=== PATIENT | female | born 1995 | race Caucasian/White ===

== ENCOUNTER 2017-08-09 11:19 | Day surgery (SDC) | payer OTHER ==
[2017-08-09] MEDS ORDERED: PROPOFOL INJ 200 MG/20 ML VIAL IV ONE (13:27)
[2017-08-09] MEDS ORDERED: DIPHENHYDRAMINE HCL 50 MG/ML VIAL IV PRN (13:52)
[2017-08-09] MEDS ORDERED: PROMETHAZINE HCL INJ 25 MG/1 ML VIAL IV PRN ×2 (13:52)
[2017-08-09] MEDS ORDERED: FENTANYL CITRATE INJ/PF 100 MCG/2 ML AMPUL IV PRN (13:52)
[2017-08-09] MEDS ORDERED: MEPERIDINE HCL/PF INJ 25 MG/1 ML DISP.SYRIN IV PRN (13:52)
--- NOTE | 2017-08-09 14:07 | Operative Report ---
Operative Report DATE OF SURGERY: 08/09/17 Operative Report: The risks, benefits and alternatives of the procedure including the risks of bleeding, perforation requiring surgery are explained to the patient in detail and informed consent is obtained. The patient is placed in the left, lateral decubital position. Timeout was called. Propofol medications administered. A rectal examination is done which did not reveal any masses, tears or fissures. An Olympus videoscope was inserted into the patient's rectum. The scope was then carefully advanced all the way to the cecum. The cecum was identified by the usual anatomical landmarks including the ileocecal valve as well as the appendiceal office. Photodocumentation is obtained. The scope was then sequentially pulled back via the various segments of the colon including the ascending colon, hepatic flexure, transverse colon, splenic flexure, descending colon and finally into the rectosigmoid portions of the colon. Retroflexion maneuvers performed. PREOPERATIVE DIAGNOSIS: change in bowel habits POSTOPERATIVE DIAGNOSIS: mild terminal ileitis OPERATION: Colonoscopy with biopsy SURGEON: CECILLE JAIN ANESTHESIA: LMAC TISSUE REMOVED OR ALTERED: As noted above. COMPLICATIONS: None. ESTIMATED BLOOD LOSS: None. INTRAOPERATIVE FINDINGS: As noted above. PROCEDURE: Patient tolerated procedure well. No immediate postprocedure complications are noted. Patient discharged in good condition. Discharge date 08/09/2017. Discharge diet: Regular. Discharge activity: Regular. 2-3 week follow-up to discuss findings. Patient is instructed to call the office or proceed to the emergency room should there be any further problems or questions. We will went pathology.
[2017-08-09] MEDS ORDERED: PROMETHAZINE HCL INJ 25 MG/1 ML VIAL INJ PRN (14:26)
[2017-08-09] MEDS ORDERED: ACETAMINOPHEN 325 MG TABLET PO PRN (14:26)
[2017-08-09] MEDS ORDERED: SIMETHICONE 80 MG TAB.CHEW PO PRN (14:26)
[2017-08-09 15:50] VITALS: BP 107/73
== END 2017-08-09 15:51 | disposition home or self-care (01) ==
LOC: OROUT 11:19
PROVIDERS: ATTEND Internal Medicine Gastroenterology
DX: K52.9 Noninfective gastroenteritis and colitis, unspecified (principal); K64.8 Other hemorrhoids; F17.210 Nicotine dependence, cigarettes, uncomplicated; Z79.899 Other long term (current) drug therapy; Z79.1 Long term (current) use of non-steroidal anti-inflammatories (NSAID); Z88.1 Allergy status to other antibiotic agents; Z88.5 Allergy status to narcotic agent; Z91.040 Latex allergy status
CPT/HCPCS: 45380; 81025; 88305 ×2; J2704; 811

== ENCOUNTER 2017-08-12 09:06 | Emergency (ER) | payer OTHER ==
[2017-08-12 09:33] VITALS: BP 102/57
--- NOTE | 2017-08-12 09:51 | ER Document Report ---
ED General - General Chief Complaint: Abdominal Pain Stated Complaint: ABDOMINAL PAIN Time Seen by Provider: 08/12/17 09:23 Mode of Arrival: Ambulatory Information source: Patient Notes: 21-year-old female history of IBS, chronic constipation issues who takes MiraLAX daily states that she is had not had a bowel movement for the past 2 weeks. Patient had a colonoscopy performed just 3 days prior, has not had any vomiting denies any rectal bleeding notes a pound weight gain in the past 2 weeks due to constipation. Patient notes generalized cramping abdominal pain similar to her previous abdominal pain TRAVEL OUTSIDE OF THE [place] IN LAST 30 DAYS: No - HPI Onset: Other - 1-2 week duration Onset/Duration: Persistent Quality of pain: Cramping Severity: Mild Pain Level: 1 Associated symptoms: Other Exacerbated by: Denies Relieved by: Denies Similar symptoms previously: Yes Recently seen / treated by doctor: Yes - Related Data Allergies/Adverse Reactions: azithromycin Allergy (Verified 08/12/17 09:07) hives, rash tramadol Allergy (Verified 08/12/17 09:07) paranoia, shaking, palpitations latex Adverse Reaction (Verified 08/12/17 09:07) itching Past Medical History - Social History Smoking Status: Current Every Day Smoker Cigarette use (# per day): Yes Chew tobacco use (# tins/day): No Smoking Education Provided: No Frequency of alcohol use: None Drug Abuse: None Family History: Reviewed & Not Pertinent Patient has suicidal ideation: No Patient has homicidal ideation: No - Past Medical History Cardiac Medical History: Denies: Hx Coronary Artery Disease, Hx Heart Attack, Hx Hypertension Pulmonary Medical History: Reports: Hx Asthma Denies: Hx Bronchitis, Hx COPD, Hx Pneumonia Neurological Medical History: Denies: Hx Cerebrovascular Accident, Hx Seizures Renal/ Medical History: Denies: Hx Peritoneal Dialysis Musculoskeltal Medical History: Denies Hx Arthritis Psychiatric Medical History: Reports: Hx Bipolar Disorder, Hx Depression Past Surgical History: Reports: Hx Tonsillectomy - Immunizations Hx Diphtheria, Pertussis, Tetanus Vaccination: - Unsure Review of Systems - Review of Systems Notes: REVIEW OF SYSTEMS: CONSTITUTIONAL : Denies fever, chills, or sweats. Denies recent illness. EENT: Denies eye, ear, throat, or mouth pain or symptoms. Denies nasal or sinus congestion or discharge. Denies throat, tongue, or mouth swelling or difficulty swallowing. CARDIOVASCULAR: Denies chest pain. Denies palpitations or racing or irregular heart beat. Denies ankle edema. RESPIRATORY: Denies cough, cold, or chest congestion. Denies shortness of breath, difficulty breathing, or wheezing. GASTROINTESTINAL: Admits constipation GENITOURINARY: Denies difficulty urinating, painful urination, burning, frequency, blood in urine, or discharge. FEMALE GENITOURINARY: Denies vaginal bleeding, heavy or abnormal periods, irregular periods. Denies vaginal discharge or odor. MUSCULOSKELETAL: Denies back or neck pain or stiffness. Denies joint pain or swelling. SKIN: Denies rash, lesions or sores. HEMATOLOGIC : Denies easy bruising or bleeding. LYMPHATIC: Denies swollen, enlarged glands. NEUROLOGICAL: Denies confusion or altered mental status. Denies passing out or loss of consciousness. Denies dizziness or lightheadedness. Denies headache. Denies weakness or paralysis or loss of use of either side. Denies problems with gait or speech. Denies sensory loss, numbness, or tingling. Denies seizures. PSYCHIATRIC: Denies anxiety or stress. Denies depression, suicidal ideation, or homicidal ideation. ALL OTHER SYSTEMS REVIEWED AND NEGATIVE. PHYSICAL EXAMINATION: GENERAL: Well-appearing, well-nourished and in no acute distress. HEAD: Atraumatic, normocephalic. EYES: Pupils equal round and reactive to light, extraocular movements intact, conjunctiva are normal. ENT: Nares patent, oropharynx clear without exudates. Moist mucous membranes. NECK: Normal range of motion, supple without lymphadenopathy LUNGS: Breath sounds clear to auscultation bilaterally and equal. No wheezes rales or rhonchi. HEART: Regular rate and rhythm without murmurs ABDOMEN: Soft, nontender, nondistended abdomen. No guarding, no rebound. No masses appreciated. Female : deferred Musculoskeletal: Normal range of motion, no pitting or edema. No cyanosis. Patient has a back brace on NEUROLOGICAL: Cranial nerves grossly intact. Normal speech, normal gait. Normal sensory, motor exams PSYCH: Normal mood, normal affect. SKIN: Warm, Dry, normal turgor, no rashes or lesions noted. Dictation was performed using [employer] ? voice recognition software Physical Exam - Vital signs Vitals: Temp Pulse Resp BP Pulse Ox 98.2 F 62 16 102/57 L 100 06/01/18 09:32 08/12/17 09:32 08/12/17 09:32 08/12/17 09:32 08/12/17 09:32 Course - Re-evaluation Re-evalutation: 08/12/17 09:55 Patient has extensive history of abdominal pain psychiatric issues, she states she has not had a bowel movement in 1-2 weeks, this appears changes she had a colonoscopy with no complications on the , she has had no signs of perforation rectal bleeding and overall looks well. I will treat her at her request symptomatically, she notes pain medications make her more constipated I will treated with GoLYTELY and have her follow-up with her GI specialist tomorrow patient promises to do so, she also has a questionable history of possible back fracture versus malformation congenital, patient has an MRI planned by orthopedics for this She denies any neurological deficits After performing a Medical Screening Examination, I estimate there is LOW risk for ACUTE APPENDICITIS, BOWEL OBSTRUCTION, ACUTE CHOLECYSTITIS, PERFORATED DIVERTICULITIS, INCARCERATED HERNIA, PANCREATITIS, PELVIC INFLAMMATORY DISEASE, PERFORATED ULCER, ECTOPIC , or TUBO-OVARIAN ABSCESS, thus I consider the discharge disposition reasonable. Also, there is no evidence or peritonitis , sepsis, or toxicity. I have reevaluated this patient multiple times and no significant life threatening changes are noted. The patient and I have discussed the diagnosis and risks, and we agree with discharging home with close follow-up with the understanding that symptoms and presentations can change. We also discussed returning to the Emergency Department immediately if new or worsening symptoms occur. We have discussed the symptoms which are most concerning (e.g., bloody stool, fever, changing or worsening pain, vomiting) that necessitate immediate return. - Vital Signs Vital signs: Temp Pulse Resp BP Pulse Ox 98.2 F 62 16 102/57 L 100 08/12/17 09:32 08/12/17 09:32 08/12/17 09:32 08/12/17 09:32 08/12/17 09:32 Discharge - Discharge Clinical Impression: Constipation Qualifiers: Constipation type: unspecified constipation type Qualified Code(s): K59.00 - Constipation, unspecified Condition: Stable Disposition: HOME, SELF-CARE Instructions: Constipation ([facility]) Prescriptions: Acetaminophen with Codeine [Tylenol #3 Tablet] 1 each PO Q4HP PRN #10 tablet PRN Reason: Peg 3350/Na Sulf,Bicarb,Cl/KCl [Golytely Solution 4000 ml] 4,000 ml PO DAILY #1 bottle Referrals: RENEE PERSAUD FNP-C [Primary Care Provider] - Follow up as needed
== END 2017-08-12 09:57 | disposition home or self-care (01) ==
LOC: ER 09:06
DX: K59.00 Constipation, unspecified (principal); R10.84 Generalized abdominal pain; Z98.890 Other specified postprocedural states; F17.210 Nicotine dependence, cigarettes, uncomplicated; J45.909 Unspecified asthma, uncomplicated
CPT/HCPCS: 99283

== ENCOUNTER 2017-08-28 11:22 | Emergency (ER) | payer OTHER ==
--- NOTE | 2017-08-28 11:50 | ER Document Report ---
ED Neck/Back Problem - General Chief Complaint: Back Pain Stated Complaint: BACK AND NECK PAIN Time Seen by Provider: 08/28/17 11:48 Mode of Arrival: Ambulatory Information source: Patient Notes: 21-year-old female presented to ED for complaint of back pain. She states she went to [facility] on Tuesday and they did x-rays and stated that she had a broken back. She states they did an MRI on Tuesday and she was referred to pain management. She states that the doctor told her that they could not diagnose her with a broken back because he is not a radiologist. 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 He states that the doctor put her on a strong anti-inflammatory medicine but this is not doing her any good and she needs something stronger for her pain. I have greeted and performed a rapid initial assessment of this patient. A comprehensive ED assessment and evaluation of the patient, analysis of test results and completion of medical decision making process will be conducted by an additional ED providers. TRAVEL OUTSIDE OF THE [place] IN LAST 30 DAYS: No - Related Data Allergies/Adverse Reactions: azithromycin Allergy (Verified 08/28/17 11:24) hives, rash tramadol Allergy (Verified 08/28/17 11:24) paranoia, shaking, palpitations latex Adverse Reaction (Verified 08/28/17 11:24) itching Past Medical History - Social History Smoking Status: Current Every Day Smoker Frequency of alcohol use: Social Drug Abuse: None Family History: Reviewed & Not Pertinent Patient has suicidal ideation: No Patient has homicidal ideation: No - Past Medical History Cardiac Medical History: Denies: Hx Coronary Artery Disease, Hx Heart Attack, Hx Hypertension Pulmonary Medical History: Reports: Hx Asthma Denies: Hx Bronchitis, Hx COPD, Hx Pneumonia Neurological Medical History: Denies: Hx Cerebrovascular Accident, Hx Seizures Renal/ Medical History: Denies: Hx Peritoneal Dialysis Musculoskeltal Medical History: Denies Hx Arthritis Psychiatric Medical History: Reports: Hx Attention Deficit Hyperactivity Disorder, Hx Bipolar Disorder, Hx Depression Past Surgical History: Reports: Hx Tonsillectomy - Immunizations Hx Diphtheria, Pertussis, Tetanus Vaccination: - Unsure Physical Exam - Vital signs Vitals: Temp Pulse Resp BP Pulse Ox 98.2 F 87 20 115/80 99 08/28/17 11:28 08/28/17 11:28 08/28/17 11:28 08/28/17 11:28 08/28/17 11:28 Course - Vital Signs Vital signs: Temp Pulse Resp BP Pulse Ox 98.2 F 87 20 115/80 99 08/28/17 11:28 08/28/17 11:28 08/28/17 11:28 08/28/17 11:28 08/28/17 11:28
[2017-08-28 12:35] LABS: APPEARANCE,URINE SLIGHTLY-CLOUDY; BILIRUBIN,URINE NEGATIVE (NEGATIVE); COLOR,URINE YELLOW; GLUCOSE, URINE NEGATIVE (NEGATIVE); KETONES,URINE NEGATIVE (NEGATIVE); LEUKOCYTE ESTERASE,URINE MODERATE (NEGATIVE); NITRITE,URINE NEGATIVE (NEGATIVE); PROTEIN,URINE NEGATIVE (NEGATIVE); URINE SPECIFIC GRAVITY 1.009; UROBILINOGEN,URINE NEGATIVE mg/dL (<2.0)
[2017-08-28] MEDS ORDERED: HYDROCODONE/ACETAMINOPHEN 5-325 MG TABLET PO ONE (13:09)
[2017-08-28] MEDS ORDERED: CYCLOBENZAPRINE HCL 10 MG TABLET PO ONE (13:10)
--- NOTE | 2017-08-28 13:12 | ER Document Report ---
ED Neck/Back Problem - General Mode of Arrival: Ambulatory Information source: Patient TRAVEL OUTSIDE OF THE [place] IN LAST 30 DAYS: No <ABELARDO PALACIO - Last Filed: 08/28/17 13:50> <DAVID MARTINES - Last Filed: 08/28/17 14:16> - General Chief Complaint: Back Pain Stated Complaint: BACK AND NECK PAIN Time Seen by Provider: 08/28/17 11:48 Notes: Patient is a 21 year old female with bipolar disorder, ADD, and anxiety presents to the emergency department complaining of neck and chronic back pain. Patient states today her back pain radiated into her neck and caused her to collapse onto her bed. She states she has had back pain for years. She reports going to [facility] 5 days ago where xrays and MRIs were performed. She reports being told she has a broken back and was referred to pain management. She further states the doctor did not give her an official diagnosis because he stated he is not a radiologist. Patient states she has yet to go to pain management. Patient is currently on Klonopin. She mentions having a colonoscopy done on August 09, 2017 and being told she has IBS and an "issue" with her colon. She states she was also put on inhibitors. (ABELARDO PALACIO) - Related Data Allergies/Adverse Reactions: azithromycin Allergy (Verified 08/28/17 11:24) hives, rash tramadol Allergy (Verified 08/28/17 11:24) paranoia, shaking, palpitations latex Adverse Reaction (Verified 08/28/17 11:24) itching Past Medical History - General Information source: Patient - Social History Smoking Status: Current Every Day Smoker Frequency of alcohol use: Social Drug Abuse: None Family History: Reviewed & Not Pertinent Patient has suicidal ideation: No Patient has homicidal ideation: No Pulmonary Medical History: Reports: Hx Asthma Psychiatric Medical History: Reports: Hx Attention Deficit Hyperactivity Disorder, Hx Bipolar Disorder, Hx Depression Past Surgical History: Reports: Hx Tonsillectomy - Immunizations Hx Diphtheria, Pertussis, Tetanus Vaccination: - Unsure <ABELARDO PALACIO - Last Filed: 08/28/17 13:50> Review of Systems - Review of Systems Constitutional: No symptoms reported EENT: No symptoms reported Cardiovascular: No symptoms reported Respiratory: No symptoms reported Gastrointestinal: No symptoms reported Genitourinary: No symptoms reported Female Genitourinary: No symptoms reported Musculoskeletal: See HPI, Back pain, Neck pain Skin: No symptoms reported Hematologic/Lymphatic: No symptoms reported Neurological/Psychological: No symptoms reported -: Yes All other systems reviewed and negative <HAKEEM,TAMSUZIE - Last Filed: 08/28/17 13:50> Physical Exam - General General appearance: Alert, Other - Appears uncomfortable In distress: None - HEENT Head: Normocephalic, Atraumatic Eyes: Normal Conjunctiva: Normal Extraocular movements intact: Yes Pupils: PERRL Mucous membranes: Normal Neck: Normal - Respiratory Respiratory status: No respiratory distress Chest status: Nontender Breath sounds: Normal Chest palpation: Normal - Cardiovascular Rhythm: Regular Heart sounds: Normal auscultation Murmur: No Friction rub: No Gallop: None auscultated - Abdominal Inspection: Normal Distension: No distension Bowel sounds: Normal Tenderness: Nontender Organomegaly: No organomegaly - Back Back: Tender - Tender to palpation the lumbar spinous processes worse over L4 through L5. Tender to palpation over the thoracic spinous processes most tender over T2. Left trapezius and left posterior cervical muscles are tender to palpation. - Extremities General upper extremity: Normal ROM General lower extremity: Normal ROM - Neurological Neuro grossly intact: Yes Cognition: Normal Orientation: AAOx4 [place] Coma Scale Eye Opening: Spontaneous Patrick Coma Scale Verbal: Oriented [place] Coma Scale Motor: Obeys Commands [place] Coma Scale Total: 15 Speech: Normal - Psychological Associated symptoms: Normal affect, Normal mood - Skin Skin Temperature: Warm Skin Moisture: Dry Skin Color: Normal <HAKEEMABELARDO - Last Filed: 08/28/17 13:50> - Vital signs Vitals: Temp Pulse Resp BP Pulse Ox 98.2 F 87 20 115/80 99 08/28/17 11:28 08/28/17 11:28 08/28/17 11:28 08/28/17 11:28 08/28/17 11:28 Course - Diagnostic Test Radiology reviewed: Image reviewed, Reports reviewed - Lumbar spine shows anterolisthesis at L5-S1, and bilateral spondylolysis at L5. <DAVID MARTINES - Last Filed: 08/28/17 14:16> - Vital Signs Vital signs: Temp Pulse Resp BP Pulse Ox 98.2 F 87 20 115/80 99 08/28/17 11:28 08/28/17 11:28 08/28/17 11:28 08/28/17 11:28 08/28/17 11:28 - Laboratory Laboratory results interpreted by me: 08/28/17 11:55 Ur Leukocyte Esterase MODERATE H Discharge <ABELARDO PALACIO - Last Filed: 08/28/17 13:50> <DAVID MARTINES - Last Filed: 08/28/17 14:16> - Discharge Clinical Impression: Spondylolysis of lumbosacral region Strain of left trapezius muscle Qualifiers: Encounter type: initial encounter Qualified Code(s): S46.812A - Strain of other muscles, fascia and tendons at shoulder and upper arm level, left arm, initial encounter Chronic low back pain Qualifiers: Back pain laterality: midline Sciatica presence: without sciatica Qualified Code(s): M54.5 - Low back pain; G89.29 - Other chronic pain; G89.29 - Other chronic pain Condition: Stable Disposition: HOME, SELF-CARE Additional Instructions: The pain you are experiencing in your upper back and neck region is most likely due to strain of your trapezius muscle. Muscle relaxers may be of benefit to this area. The chronic pain in your lumbar back region is likely due to the spondylolysis that was seen on your x-ray, and that is what they were talking about when they said you had fractures in your back. Take the medication as prescribed for pain and muscle relaxation. Get plenty of rest. Wear your back brace all the time. Follow-up with your primary care provider this week for the recheck of your upper back, and to see when your chronic pain management appointment will be. Prescriptions: Hydrocodone/Acetaminophen [Hydrocodon-Acetaminophen 5-325] 1 each PO ASDIR PRN # 15 tablet PRN Reason: For Back Pain Methocarbamol [Robaxin 750 mg Tablet] 750 mg PO Q6 #20 tablet Scribe Attestation: 08/28/17 13:44 I personally performed the services described in the documentation, reviewed and edited the documentation which was dictated to the scribe in my presence, and it accurately records my words and actions. (DAVID MARTINES) Scribe Documentation - Scribe Written by Griffin:: Griffin Mccormack, 08/28/2017 13:26 acting as scribe for :: Pranav <ABELARDO PALACIO - Last Filed: 08/28/17 13:50>
--- NOTE | 2017-08-28 13:22 | RADIOLOGY REPORT (SQ) ---
EXAM DESCRIPTION: L SPINE WHOLE COMPLETED DATE/TIME: 08/28/2017 12:44 pm REASON FOR STUDY: Low back pain radiating to her legs and up to her COMPARISON: None. NUMBER OF VIEWS: Five views including obliques. TECHNIQUE: AP, lateral, oblique, and sacral radiographic images acquired of the lumbar spine. LIMITATIONS: None. FINDINGS: MINERALIZATION: Normal. SEGMENTATION: Normal. No transitional anatomy. ALIGNMENT: Mild grade 1 anterolisthesis of L5 over S1 related to bilateral L5 spondylolysis VERTEBRAE: Maintained height. No fracture or worrisome bone lesion. DISCS: Preserved height. No significant osteophytes or end plate irregularity. POSTERIOR ELEMENTS: Bilateral L5 spondylolysis HARDWARE: None in the spine. PARASPINAL SOFT TISSUES: Normal. PELVIS: Intact as visualized. No fractures or worrisome bone lesions. SI joints intact. OTHER: No other significant finding. IMPRESSION: Mild grade 1 anterolisthesis of L5 over S1 related to bilateral L5 spondylolysis TECHNICAL DOCUMENTATION: JOB ID: [id number] [employer]- All Rights Reserved Reading location - IP/workstation name: [email or web address]
[2017-08-28 14:33] VITALS: BP 123/65
== END 2017-08-28 14:26 | disposition home or self-care (01) ==
LOC: ER 11:22
DX: M47.897 Other spondylosis, lumbosacral region (principal); S46.812A Strain of other muscles, fascia and tendons at shoulder and upper arm level, left arm, initial encounter; X58.XXXA Exposure to other specified factors, initial encounter; M54.5 Low back pain; G89.29 Other chronic pain; F17.200 Nicotine dependence, unspecified, uncomplicated; Z88.3 Allergy status to other anti-infective agents; Z91.040 Latex allergy status
CPT/HCPCS: 72110; 81001; 81025; 99283

== ENCOUNTER 2017-10-22 17:22 | Emergency (ER) | payer OTHER ==
[2017-10-22] MEDS ORDERED: HYDROCODONE/ACETAMINOPHEN 5-325 MG TABLET PO ONE (18:06)
--- NOTE | 2017-10-22 18:11 | ER Document Report ---
ED Medical Screen (RME) - General Chief Complaint: Abdominal Pain Stated Complaint: ABDOMINAL PAIN Time Seen by Provider: 10/22/17 18:05 Mode of Arrival: Ambulatory Information source: Patient TRAVEL OUTSIDE OF THE [place] IN LAST 30 DAYS: No - HPI Patient complains to provider of: low abd pain Onset: Other - pt with low abd/pelvic pain for the past 2 weeks with exaacerbation today. She denies vaginal d/c or bleeding - Related Data Allergies/Adverse Reactions: azithromycin Allergy (Verified 10/22/17 17:23) hives, rash tramadol Allergy (Verified 10/22/17 17:23) paranoia, shaking, palpitations latex Adverse Reaction (Verified 10/22/17 17:23) itching Past Medical History - Social History Chew tobacco use (# tins/day): No Frequency of alcohol use: Rare Drug Abuse: Marijuana - Past Medical History Cardiac Medical History: Denies: Hx Coronary Artery Disease, Hx Heart Attack, Hx Hypertension Pulmonary Medical History: Reports: Hx Asthma Denies: Hx Bronchitis, Hx COPD, Hx Pneumonia Neurological Medical History: Denies: Hx Cerebrovascular Accident, Hx Seizures Renal/ Medical History: Denies: Hx Peritoneal Dialysis Musculoskeltal Medical History: Denies Hx Arthritis Psychiatric Medical History: Reports: Hx Attention Deficit Hyperactivity Disorder, Hx Bipolar Disorder, Hx Depression Past Surgical History: Reports: Hx Tonsillectomy - Immunizations Hx Diphtheria, Pertussis, Tetanus Vaccination: - Unsure History of Influenza Vaccine for 12/2016 - 05/2017 Season: No Physical Exam - Vital signs Vitals: Temp Pulse Resp BP Pulse Ox 98.4 F 109 H 16 108/67 100 10/22/17 17:29 10/22/17 17:29 10/22/17 17:29 10/22/17 17:29 10/22/17 17:29 Course - Vital Signs Vital signs: Temp Pulse Resp BP Pulse Ox 98.4 F 109 H 16 108/67 100 10/22/17 17:29 10/22/17 17:29 10/22/17 17:29 10/22/17 17:29 10/22/17 17:29 Doctor's Discharge - Discharge Referrals: STONE AMAYA PA-C [Primary Care Provider] - Follow up as needed
[2017-10-22 20:02] LABS: ABSOLUTE BASOPHILS # (AUTO) 0.1 10^3/uL (0.0-0.2); ABSOLUTE EOSINOPHILS # (AUTO) 0.1 10^3/uL (0.0-0.6); ABSOLUTE MONOCYTES (AUTO) 0.4 10^3/uL (0.1-1.4); ABSOLUTE NEUT (AUTO) 2.7 10^3/uL (1.7-8.2); BASOPHILS % (AUTO) 0.9 % (0-2); HEMATOCRIT 38.6 % (36.0-47.0); HEMOGLOBIN 13.2 g/dL (12.0-15.5); LYMPHOCYTES % (AUTO) 47.3 % (13-45); MEAN CORPUSCULAR HEMOGLOBIN 32.1 pg (27.0-33.4); MEAN CORPUSCULAR HGB CONC 34.2 g/dL (32.0-36.0); MEAN CORPUSCULAR VOLUME 94 fl (80-97); PLATELET COUNT 197 10^3/uL (150-450); RED BLOOD COUNT 4.11 10^6/uL (3.72-5.28); RED CELL DISTRIBUTION WIDTH 14.2 % (11.5-14.0); SEGMENTED NEUTROPHILS % (AUTO) 42.8 % (42-78); TOTAL CELLS COUNTED % (AUTO) 100 %; WHITE BLOOD COUNT 6.4 10^3/uL (4.0-10.5)
[2017-10-22 20:24] LABS: ALANINE AMINOTRANSFERASE 40 U/L (9-52); ALBUMIN 4.2 g/dL (3.5-5.0); ALKALINE PHOSPHATASE 47 U/L (38-126); ANION GAP 13 (5-19); ASPARTATE AMINO TRANSFERASE 22 U/L (14-36); BILIRUBIN,DIRECT 0.2 mg/dL (0.0-0.4); BILIRUBIN,TOTAL 0.5 mg/dL (0.2-1.3); BLOOD UREA NITROGEN 18 mg/dL (7-20); CALCIUM 9.1 mg/dL (8.4-10.2); CARBON DIOXIDE 22 mmol/L (22-30); CHLORIDE 106 mmol/L (98-107); GLUCOSE 85 mg/dL (75-110); POTASSIUM 3.7 mmol/L (3.6-5.0); SODIUM 141.2 mmol/L (137-145)
--- NOTE | 2017-10-22 20:48 | RADIOLOGY REPORT (SQ) ---
EXAM DESCRIPTION: U/S NON OB PEL W/DOPPLER COMPLETED DATE/TIME: 10/22/2017 7:35 pm REASON FOR STUDY: low abd pain COMPARISON: None. TECHNIQUE: Grayscale images acquired of the pelvis via transvaginal approach and recorded on PACS. A dditional selected color Doppler and spectral images recorded. LIMITATIONS: None. FINDINGS: UTERUS: Measures 8.4 x 3.9 x 5.2 cm. No focal myometrial mass. ENDOMETRIAL STRIPE: Measures 3 mm in double wall thickness. CERVIX: Measures 3.4 cm in length. No nabothian cysts. RIGHT OVARY AND DOPPLER: Measures 2.8 x 3.3 x 3.2 cm. Small follicles are noted. Flow by Doppler wa s shown to the right ovary. LEFT OVARY AND DOPPLER: Ovary not visualized. FREE FLUID: None noted. IMPRESSION: Nonvisualized left ovary. Otherwise, no acute findings. TECHNICAL DOCUMENTATION: JOB ID: [id number] [employer]- All Rights Reserved Rev Reading location - IP/workstation name: [email or web address]
[2017-10-22 21:14] LABS: APPEARANCE,URINE CLEAR; BILIRUBIN,URINE NEGATIVE (NEGATIVE); COLOR,URINE STRAW; GLUCOSE, URINE NEGATIVE (NEGATIVE); KETONES,URINE NEGATIVE (NEGATIVE); LEUKOCYTE ESTERASE,URINE NEGATIVE (NEGATIVE); NITRITE,URINE NEGATIVE (NEGATIVE); PROTEIN,URINE NEGATIVE (NEGATIVE); URINE SPECIFIC GRAVITY 1.016; UROBILINOGEN,URINE NEGATIVE mg/dL (<2.0)
--- NOTE | 2017-10-22 21:16 | ER Document Report ---
ED GI/ - General Chief Complaint: Abdominal Pain Stated Complaint: ABDOMINAL PAIN Time Seen by Provider: 10/22/17 18:05 Mode of Arrival: Ambulatory Notes: Patient is a 22-year-old female comes emergency department for chief complaint of pelvic pain on both sides, symptoms started about 2 weeks ago, intermittent, she denies vaginal bleeding or discharge, dysuria, flank pain, vomiting, fever. She denies any abdominal surgeries. History of anxiety/depression, medicated for this, no other medication types. Also has history of irritable bowel, negative colonoscopy in the past. Significant other at bedside. TRAVEL OUTSIDE OF THE [place] IN LAST 30 DAYS: No - Related Data Allergies/Adverse Reactions: azithromycin Allergy (Verified 10/22/17 18:10) hives, rash tramadol Allergy (Verified 10/22/17 18:10) paranoia, shaking, palpitations latex Adverse Reaction (Verified 10/22/17 18:10) itching Past Medical History - General Information source: Patient - Social History Smoking Status: Current Every Day Smoker Chew tobacco use (# tins/day): No Frequency of alcohol use: Rare Drug Abuse: Marijuana Lives with: Family Family History: Reviewed & Not Pertinent Patient has suicidal ideation: Yes - was at [facility] Patient has homicidal ideation: No - Past Medical History Cardiac Medical History: Denies: Hx Coronary Artery Disease, Hx Heart Attack, Hx Hypertension Pulmonary Medical History: Reports: Hx Asthma Denies: Hx Bronchitis, Hx COPD, Hx Pneumonia Neurological Medical History: Denies: Hx Cerebrovascular Accident, Hx Seizures Renal/ Medical History: Denies: Hx Peritoneal Dialysis Musculoskeletal Medical History: Denies Hx Arthritis Psychiatric Medical History: Reports: Hx Attention Deficit Hyperactivity Disorder, Hx Bipolar Disorder, Hx Depression Past Surgical History: Reports: Hx Tonsillectomy - Immunizations Hx Diphtheria, Pertussis, Tetanus Vaccination: Yes Review of Systems - Review of Systems Constitutional: No symptoms reported EENT: No symptoms reported Cardiovascular: No symptoms reported Respiratory: No symptoms reported Gastrointestinal: See HPI Genitourinary: See HPI Female Genitourinary: See HPI Musculoskeletal: No symptoms reported Skin: No symptoms reported Hematologic/Lymphatic: No symptoms reported Neurological/Psychological: No symptoms reported Physical Exam - Vital signs Vitals: Temp Pulse Resp BP Pulse Ox 98.4 F 109 H 16 108/67 100 10/22/17 17:29 10/22/17 17:29 10/22/17 17:29 10/22/17 17:29 10/22/17 17:29 - Notes Notes: GENERAL: Alert, interacts well. No acute distress. HEAD: Normocephalic, atraumatic. EYES: Pupils equal, round, and reactive to light. Extraocular movements intact. ENT: Oral mucosa moist, tongue midline. NECK: Full range of motion. Supple. Trachea midline. LUNGS: Clear to auscultation bilaterally, no wheezes, rales, or rhonchi. No respiratory distress. HEART: Regular rate and rhythm. No murmur ABDOMEN: Soft abdomen with some tenderness over the pelvic area but otherwise unremarkable. No guarding.. Non-distended. Bowel sounds present in all 4 quadrants. GENITOURINARY: Moderate amount of yellowish vaginal discharge, mild cervical motion tenderness, no concerning external examination findings, no other abnormalities noted. Sherley PCT present during exam. EXTREMITIES: Moves all 4 extremities spontaneously. No edema, normal radial and dorsalis pedis pulses bilaterally. No cyanosis. BACK: no cervical, thoracic, lumbar midline tenderness. No saddle anesthesia, normal distal neurovascular exam. NEUROLOGICAL: Alert and oriented x3. Normal speech. [cranial nerves II through XII grossly intact]. PSYCH: Normal affect, normal mood. SKIN: Warm, dry, normal turgor. No rashes or lesions noted. Course - Re-evaluation Re-evalutation: Mild pelvic tenderness on exam, no guarding suggest acute abdomen. Patient is well-appearing, no distress. Vital signs are unremarkable. No fever. CBC, chemistry, urinalysis reviewed and generally unremarkable. HCG is negative. Ultrasound with no acute findings. Physical examination does suggest pelvic infection, 2+ white blood cells on wet mount, unremarkable otherwise. Discussed with patient. Covering for pelvic infection for suspected source of pain symptoms, discussed follow-up, discussed return precautions, patient states understanding and agreement. - Vital Signs Vital signs: Temp Pulse Resp BP Pulse Ox 97.3 F 97 16 115/70 97 10/22/17 22:33 10/22/17 22:33 10/22/17 22:33 10/22/17 22:33 10/22/17 22:33 - Laboratory Result Diagrams: 10/22/17 19:47 10/22/17 19:47 Laboratory results interpreted by me: 08/11/18 19:47 RDW 14.2 H Lymphocytes % 47.3 H Discharge - Discharge Clinical Impression: Lower abdominal pain Condition: Stable Disposition: HOME, SELF-CARE Additional Instructions: Your evaluation is consistent with pelvic infection, you have been treated for this. The remaining workup including ultrasound did not show any abnormalities at this time. Follow-up with primary care. Return if you worsen including vomiting, fever of 100.4 or greater, increased pain, or any other concerning or worsening symptoms. Prescriptions: Doxycycline Hyclate 100 mg PO BID #14 capsule Referrals: STONE AMAYA PA-C [Primary Care Provider] - Follow up as needed
[2017-10-22 22:05] LABS: RBCS (WET MOUNT) NO RBCS SEEN; T.VAGINALIS (WET MOUNT) NO TRICHOMONAS SEEN; WBCS (WET MOUNT) 2+ WBCS SEEN; YEAST (WET MOUNT) NO YEAST SEEN
[2017-10-22] MEDS ORDERED: HYDROCODONE/ACETAMINOPHEN 5-325 MG (6 TAB/ER DISP) PO PRN (22:10)
[2017-10-22] MEDS ORDERED: CEFTRIAXONE INJ 250 MG VIAL IM ONE (22:10)
[2017-10-22] MEDS ORDERED: LIDOCAINE 1% INJ-PF (10 MG/ML) 30 ML SDV INJ ONE (22:10)
[2017-10-22] MEDS ORDERED: DOXYCYCLINE HYCLATE 100 MG TABLET PO ONE (22:10)
[2017-10-22 22:34] VITALS: BP 115/70
[2017-10-22 23:20] LABS: CHLAM PCR NOT DETECTED (NOT DETECT); GON PCR NOT DETECTED (NOT DETECT)
== END 2017-10-22 22:40 | disposition home or self-care (01) ==
LOC: ER 17:22
DX: R10.2 Pelvic and perineal pain (principal); J45.909 Unspecified asthma, uncomplicated; F17.200 Nicotine dependence, unspecified, uncomplicated; F12.10 Cannabis abuse, uncomplicated; F41.9 Anxiety disorder, unspecified; F32.9 Major depressive disorder, single episode, unspecified; Z79.899 Other long term (current) drug therapy; Z87.19 Personal history of other diseases of the digestive system; Z88.1 Allergy status to other antibiotic agents; Z88.5 Allergy status to narcotic agent
CPT/HCPCS: 99284; 96372; 36415; 87210; 85025; 81025; 80053; 81001; 87491; 87591; 76856; 93976; J3490; J0696

== ENCOUNTER 2017-12-16 13:54 | Emergency (ER) | payer OTHER ==
[2017-12-16 14:12] VITALS: BP 112/64
[2017-12-16] MEDS ORDERED: KETOROLAC TROMETHAMINE 60 MG/2 ML SDV IM ONE (15:24)
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
== END 2017-12-16 16:00 | disposition home or self-care (01) ==
LOC: ER 13:54
DX: G89.29 Other chronic pain (principal); M54.41 Lumbago with sciatica, right side; Z79.1 Long term (current) use of non-steroidal anti-inflammatories (NSAID); F17.210 Nicotine dependence, cigarettes, uncomplicated; J45.909 Unspecified asthma, uncomplicated; Z88.1 Allergy status to other antibiotic agents; Z88.5 Allergy status to narcotic agent
CPT/HCPCS: 99283; 96372; J1885